=== PATIENT | male | born 1935 | race Caucasian/White ===

== ENCOUNTER 2019-02-25 08:57 | Emergency (ER) | payer MEDICARE, BC ==
[2019-02-25] MEDS ORDERED: Sodium Chloride 0.9% 10 ML Syringe FLUSH PRN (09:11)
[2019-02-25] MEDS ORDERED: Aspirin 81 MG Tab.Chew PO ONE (09:17)
[2019-02-25] MEDS ORDERED: Morphine 2 MG/ML Syringe IVPUSH ONE (09:19)
--- NOTE | 2019-02-25 09:34 | EDM.PDOC ---
ED HPI GENERAL MEDICAL PROBLEM - General Stated Complaint: CHEST PAINS Time Seen by Provider: 02/25/19 09:00 Source of Information: Reports: Patient History Limitations: Reports: No Limitations - History of Present Illness INITIAL COMMENTS - FREE TEXT/NARRATIVE: Patient comes to the emergency department complaint of chest pain. Patient states that the chest discomfort started approximately 2 days ago. Patient states that it started in his right elbow and gravitated towards the mid sternal chest discomfort. He rates it about a 5 on a scale from 5-10. He also states that he is able to go to complete his activities of daily living . he states that the discomfort is more of annoyance than any sharps/hooting/ discomfort. He denies any activities that make the discomfort worse or better. He states that it is a constant discomfort and has not gone away in the course of the last 2 days.He denies any shortness of breath,nausea,vomiting, increase swelling of his lower extremities. Patient does not have a history of cardiovascular disease and states that he is relatively healthy jinny. Patient does take daily aspirin and did take it this morning. Patient denies any other concerns or complaints. Onset: Gradual Location: Reports: Chest Quality: Reports: Other Severity: Mild Improves with: Reports: None Worsens with: Reports: None Context: Reports: Other Associated Symptoms: Reports: No Other Symptoms Treatments CASE BRIEFER: Reports: Aspirin - Related Data Allergies Allergy/AdvReac Type Severity Reaction Status Date / Time shrimp Allergy Nausea and Verified 02/25/19 11:19 Vomiting Home Meds: Home Meds Aspirin/Dipyridamole [Aggrenox 200-25 MG] 1 cap PO BID 02/25/19 [History] Folic Acid 1 mg PO DAILY 02/25/19 [History] Gabapentin [Neurontin] 100 mg PO TID 02/25/19 [History] atorvaSTATin Calcium [Atorvastatin Calcium] 20 mg PO DAILY 02/25/19 [History] ED ROS GENERAL - Review of Systems Review Of Systems: See Below Constitutional: Reports: No Symptoms HEENT: Reports: No Symptoms Respiratory: Reports: No Symptoms Cardiovascular: Reports: Chest Pain Endocrine: Reports: No Symptoms GI/Abdominal: Reports: No Symptoms : Reports: No Symptoms Musculoskeletal: Reports: No Symptoms Skin: Reports: No Symptoms Neurological: Reports: No Symptoms ED EXAM, GENERAL - Physical Exam Exam: See Below Exam Limited By: No Limitations General Appearance: Alert, WD/WN, No Apparent Distress Head: Atraumatic, Normocephalic Neck: Normal Inspection, Supple, Non-Tender, Full Range of Motion Respiratory/Chest: No Respiratory Distress, Lungs Clear, No Accessory Muscle Use , Chest Non-Tender Cardiovascular: Normal Peripheral Pulses, Regular Rate, Rhythm, No Edema Back Exam: Normal Inspection, Full Range of Motion Extremities: Normal Inspection, Normal Range of Motion, Non-Tender, No Pedal Edema, Normal Capillary Refill Neurological: Alert, Oriented, CN II-XII Intact, Normal Cognition, Normal Gait Psychiatric: Normal Affect, Normal Mood Skin Exam: Warm, Dry, Intact, Normal Color Course - Orders/Labs/Meds Orders: Active Orders 24 hr Category Date Time Status Cardiac Monitoring [RC] . DIRECTED Care 02/25/19 09:11 Active EKG Documentation Completion [RC] STAT Care 02/25/19 09:11 Active Sodium Chloride 0.9% [Saline Flush] Med 02/25/19 09:11 Active 10 ml FLUSH ASDIRECTED PRN Peripheral IV Insertion Adult [OM.PC] Stat Oth 02/25/19 09:11 Ordered Medication Orders Sodium Chloride (Saline Flush) 10 ml FLUSH ASDIRECTED PRN PRN Reason: Keep Vein Open Labs: Laboratory Tests 02/25/19 02/25/19 Range/Units 09:25 09:25 WBC 7.5 (4.0-10.0) x10^3/uL RBC 4.27 L (4.5-6.0) x10^6/uL Hgb 14.5 (14.0-18.0) g/dL Hct 43.2 (40.0-52.0) % MCV 101.2 H (78.0-93.0) fL MCH 34.0 H (26.0-32.0) pg MCHC 33.6 (32.0-36.0) g/dL RDW Coeff of Terese 11.9 (10.0-15.0) % Plt Count 191 (130-400) x10^3/uL Neut % (Auto) 63.6 (50.0-80.0) % Lymph % (Auto) 26.2 (25.0-50.0) % Addison % (Auto) 8.1 (2.0-11.0) % Eos % (Auto) 1.7 (0.0-4.0) % Baso % (Auto) 0.4 (0.2-1.2) % Sodium 140 (69-191) mmol/L Potassium 4.0 (1.5-9.9) mmol/L Chloride 103 (54-184) mmol/L Carbon Dioxide 29 (21-32) mmol/L Anion Gap 12.0 (10-20) mmol/L BUN 15 (7-18) mg/dL Creatinine 1.1 (0.70-1.30) mg/dL Est Cr Clr Drug Dosing TNP Estimated GFR (MDRD) > 60 Glucose 96 (74-106) mg/dL Calcium 9.0 (8.5-10.1) mg/dL Corrected Calcium 9.24 (8.5-10.1) mg/dL Total Bilirubin 0.5 (0.2-1.0) mg/dL AST 22 (15-37) U/L ALT 24 (16-63) U/L Alkaline Phosphatase 77 (46-116) U/L Troponin I < 0.017 (<=0.056) ng/mL Total Protein 7.1 (6.4-8.2) g/dL Albumin 3.7 (3.4-5.0) g/dL Globulin 3.4 Albumin/Globulin Ratio 1.09 Meds: Medications Generic Name Dose Route Start Last Admin Trade Name Freq PRN Reason Stop Dose Admin Sodium Chloride 10 ml 02/25/19 09:11 Saline Flush FLUSH ASDIRECTED PRN Keep Vein Open Discontinued Medications Generic Name Dose Route Start Last Admin Trade Name Freq PRN Reason Stop Dose Admin Aspirin 244 mg 02/25/19 09:17 02/25/19 09:42 Aspirin PO 02/25/19 09:18 243 mg ONETIME ONE Administration Morphine Sulfate 1 mg 02/25/19 09:19 02/25/19 09:42 Morphine IVPUSH 02/25/19 09:20 1 mg ONETIME ONE Administration Departure - Departure Time of Disposition: 10:00 Disposition: Against Medical Advice 07 Condition: Fair Clinical Impression: Bradycardia Chest pain Qualifiers: Chest pain type: unspecified Qualified Code(s): R07.9 - Chest pain, unspecified Instructions: Nonspecific Chest Pain, Bradycardia, Adult Referrals: Deejay Cyr MD [Primary Care Provider] - Forms: ED Department Discharge Additional Instructions: 1. You are leaving against medical advise 2. It is recommended you be evaluated at a higher level of care regarding the cardiac concerns. 3. You are assuming all the risks with leaving prior to further evaluation and management. You have signed the papers stating your understanding. 4. However, at anytime you would like to be reassessed or if symptoms worsen return to the ER, go to your PCP or call 911 right away to initiate medical help. - My Orders Last 24 Hours: My Active Orders 02/25/19 09:11 Cardiac Monitoring [RC] . DIRECTED EKG Documentation Completion [RC] STAT Sodium Chloride 0.9% [Saline Flush] 10 ml FLUSH ASDIRECTED PRN Peripheral IV Insertion Adult [OM.PC] Stat - Assessment/Plan Last 24 Hours: My Active Orders 02/25/19 09:11 Cardiac Monitoring [RC] . DIRECTED EKG Documentation Completion [RC] STAT Sodium Chloride 0.9% [Saline Flush] 10 ml FLUSH ASDIRECTED PRN Peripheral IV Insertion Adult [OM.PC] Stat Assessment:: 1. chest pain Plan: 1. IV initiated in the ER 2. Labs completed in the ER. Results reviewed with patient 3. EKG completed in ER. Results reviewed patient 4. 3 baby aspirins given to the patient ER. Patient took 1 baby aspirin prior to arrival 5. Morphine 1 mg ordered for pain relief 6. After discussing today's visit with the patient it was suggested that he be transported to a higher level care for further evaluation regarding his cardiac status. He was not happy that he was in the ER for 2.5 hours and wanted to be sent home. It was discussed with the patient he was being monitored because he was has having bradycardic (40's) events on the quality assurance monitor chassis and has ongoing chest pain. It was recommended that he be transferred for a further investigation regarding his on going cardiac concerns. Patient is unwilling to be transported to higher-level care. Patient is also unwilling to be admitted to the hospital. Patient assumes the risk of being discharged AGAINST MEDICAL ADVICE. Patient is aware and repeats that he understands the risk factors including myocardial infarction, stroke, bleeding, and even . Patient states that he will follow up with primary care if the chest discomfort continues. Patient is willing to sign AMA papers. 7. Nursing completed AMA papers with the patient prior to discharge. All questions and concerns addressed prior to the patient leaving.
[2019-02-25 09:50] LABS: CHLORIDE,CL 103 mmol/L (54-184); SODIUM,NA 140 mmol/L (69-191)
--- NOTE | 2019-02-25 10:07 | CR ---
[id number] RAD/RAD Chest PA or AP 1V EXAM: FRONTAL CHEST INDICATION: CHEST PAIN. COMPARISON: None. DISCUSSION: The lungs are mildly hypoinflated, but clear. The heart is normal in size. IMPRESSION: 1. Mild hypoinflation. Rigo Song MD 02/25/19 1005 Thank you for allowing us to participate in the care of your patient.
== END 2019-02-25 11:35 | disposition left against medical advice (07) ==
LOC: VM.ED 08:57
DX: R07.9 Chest pain, unspecified (principal); R00.1 Bradycardia, unspecified; Z91.013 Allergy to seafood; Z79.82 Long term (current) use of aspirin; Z79.899 Other long term (current) drug therapy
CPT/HCPCS: 71045; 80053; 84484; 85025; 93005; 96374; 99285; A9270; J2270

== ENCOUNTER 2019-08-11 08:35 | Emergency (ER) | payer MEDICARE, BC ==
[2019-08-11] MEDS ORDERED: Sodium Chloride 0.9% 10 ML Syringe FLUSH PRN (08:52)
[2019-08-11] MEDS ORDERED: Atropine 0.1 MG/ML 10 ML Syringe IVPUSH ONE (08:52)
--- NOTE | 2019-08-11 08:58 | EDM.PDOC ---
ED HPI GENERAL MEDICAL PROBLEM - General Chief Complaint: Cardiovascular Problem Stated Complaint: POSS SEIZURE Time Seen by Provider: 08/11/19 08:45 Source of Information: Reports: Patient History Limitations: Reports: No Limitations - History of Present Illness INITIAL COMMENTS - FREE TEXT/NARRATIVE: Pt. presents to ER with complaints of unresponsive episodes. Family states that today pt. had 2 episodes of unresponsiveness/possible seizure activity. Pt. was transported to ER via private vehicle. Pt. has been experiencing episodes of decreased LOC/unresponsiveness recently and is currently being worked up for this at [facility] in [place]. He is here visiting his son. Pt. states that he recently had a holter-type study that finished last week, but states that he does not have the results. Denies any chest pain. No shortness of breath. No nausea, vomiting, fever, or chills. He is not currently on a beta mohini but recently was started on amlodipine. On arrival to ER, pt. heart rate was noted to be approx. 33. Onset: Today Onset Date: 08/11/19 Location: Reports: Generalized Associated Symptoms: Reports: Confusion, Syncope, Other (Episodes of unresponsiveness, 2 today, lasting about 1 minute. See HPI.) - Related Data Allergies Allergy/AdvReac Type Severity Reaction Status Date / Time shrimp Allergy Nausea and Verified 08/11/19 09:25 Vomiting Home Meds: Home Meds Aspirin/Dipyridamole [Aggrenox 200-25 MG] 1 cap PO BID 02/25/19 [History] Folic Acid 1 mg PO DAILY 02/25/19 [History] Gabapentin [Neurontin] 100 mg PO TID 02/25/19 [History] atorvaSTATin Calcium [Atorvastatin Calcium] 20 mg PO DAILY 02/25/19 [History] Past Medical History Cardiovascular History: Reports: High Cholesterol, Hypertension ED ROS GENERAL - Review of Systems Review Of Systems: See Below Constitutional: Reports: No Symptoms HEENT: Reports: No Symptoms Respiratory: Reports: No Symptoms Cardiovascular: Reports: Lightheadedness, Syncope Endocrine: Reports: No Symptoms GI/Abdominal: Reports: No Symptoms : Reports: No Symptoms Musculoskeletal: Reports: No Symptoms Skin: Reports: No Symptoms Neurological: Reports: No Symptoms Psychiatric: Reports: No Symptoms Hematologic/Lymphatic: Reports: No Symptoms Immunologic: Reports: No Symptoms ED EXAM, GENERAL - Physical Exam Exam: See Below Exam Limited By: No Limitations General Appearance: Alert, WD/WN, No Apparent Distress Eye Exam: Bilateral Eye: EOMI, PERRL Head: Atraumatic, Normocephalic Neck: Normal Inspection, Supple, Non-Tender, Full Range of Motion Respiratory/Chest: No Respiratory Distress, Lungs Clear, Normal Breath Sounds, No Accessory Muscle Use, Chest Non-Tender Cardiovascular: Bradycardia Peripheral Pulses: 4+: Radial (L) GI/Abdominal: Soft, Non-Tender, No Organomegaly, No Distention, No Abnormal Bruit, No Mass, Pelvis Stable (Male) Exam: Deferred Rectal (Males) Exam: Deferred Back Exam: Normal Inspection, Full Range of Motion Extremities: Normal Inspection, Normal Range of Motion, Non-Tender, No Pedal Edema, Normal Capillary Refill Neurological: Alert, Oriented, CN II-XII Intact, Normal Cognition, Normal Gait, Normal Reflexes, No Motor/Sensory Deficits Psychiatric: Normal Affect, Normal Mood Skin Exam: Warm, Dry, Intact, Normal Color, No Rash Lymphatic: No Adenopathy Course - Vital Signs Last Recorded V/S: Last Vital Signs Temp 36.6 C 08/11/19 08:38 Pulse 35 L 08/11/19 09:31 Resp 11 L 08/11/19 09:31 BP 126/47 L 08/11/19 09:31 Pulse Ox 98 08/11/19 09:31 - Orders/Labs/Meds Orders: Active Orders 24 hr Category Date Time Status Cardiac Monitoring [RC] CONTINUOUS Care 08/11/19 08:52 Active EKG Documentation Completion [RC] STAT Care 08/11/19 08:52 Active COMPREHENSIVE METABOLIC PN,CMP [CHEM] Stat Lab 08/11/19 09:17 Received CRP [C-REACTIVE PROTEIN] [CHEM] Stat Lab 08/11/19 09:17 Received MAGNESIUM [CHEM] Stat Lab 08/11/19 09:17 Received PHOSPHORUS [CHEM] Stat Lab 08/11/19 09:17 Received PRO B-TYPE NATRIUR PEPT,BNPPRO [CHEM] Stat Lab 08/11/19 09:17 Received TSH ULTRASENSITIVE [CHEM] Stat Lab 08/11/19 09:17 Received Sodium Chloride 0.9% [Normal Saline] 500 ml Med 08/11/19 09:00 Active IV ASDIRECTED Sodium Chloride 0.9% [Saline Flush] Med 08/11/19 08:52 Active 10 ml FLUSH ASDIRECTED PRN Peripheral IV Insertion Adult [OM.PC] Routine Oth 08/11/19 08:53 Ordered Medication Orders Sodium Chloride (Normal Saline) 500 mls @ 100 mls/hr IV ASDIRECTED EVANGELISTA Last Admin: 08/11/19 08:55 Dose: 100 mls/hr Sodium Chloride (Saline Flush) 10 ml FLUSH ASDIRECTED PRN PRN Reason: Keep Vein Open Labs: Laboratory Tests 08/11/19 08/11/19 Range/Units 09:17 09:17 WBC 8.7 (4.0-10.0) x10^3/uL RBC 3.81 L (4.5-6.0) x10^6/uL Hgb 13.0 L D (14.0-18.0) g/dL Hct 38.7 L (40.0-52.0) % MCV 101.6 H (78.0-93.0) fL MCH 34.1 H (26.0-32.0) pg MCHC 33.6 (32.0-36.0) g/dL RDW Coeff of Terese 11.4 (10.0-15.0) % Plt Count 201 (130-400) x10^3/uL Neut % (Auto) 79.5 (50.0-80.0) % Lymph % (Auto) 10.6 L (25.0-50.0) % [place]asper % (Auto) 9.1 (2.0-11.0) % Eos % (Auto) 0.6 (0.0-4.0) % Baso % (Auto) 0.2 (0.2-1.2) % PT 10.4 (10.0-12.8) SEC INR 0.9 L (2.0-3.5) Meds: Medications Generic Name Dose Route Start Last Admin Trade Name Freq PRN Reason Stop Dose Admin Sodium Chloride 500 mls @ 100 mls/hr 08/11/19 09:00 08/11/19 08:55 Normal Saline IV 100 mls/hr ASDIRECTED EVANGELISTA Administration Sodium Chloride 10 ml 08/11/19 08:52 Saline Flush FLUSH ASDIRECTED PRN Keep Vein Open Discontinued Medications Generic Name Dose Route Start Last Admin Trade Name Freq PRN Reason Stop Dose Admin Atropine Sulfate 0.5 mg 08/11/19 08:52 08/11/19 08:55 Atropine 0.1 Mg/Ml IVPUSH 08/11/19 08:53 0.5 mg ONETIME ONE Administration Departure - Departure Time of Disposition: 09:29 Disposition: DC/Tfer to Acute Hospital 02 Reason for Transfer *Q: Other Condition: Critical Clinical Impression: Third degree heart block, Symptomatic bradycardia Referrals: Deejay Cyr MD [Primary Care Provider] - Forms: ED Department Discharge Sepsis Event Note - Focused Exam Vital Signs: Vital Signs Temp Pulse Resp BP Pulse Ox 08/11/19 09:31 35 L 11 L 126/47 L 98 08/11/19 08:38 36.6 C 36 L 18 156/97 H 98 Date Exam was Performed: 08/11/19 Time Exam was Performed: 09:39 - Problem List Review Problem List Initiated/Reviewed/Updated: Yes - My Orders Last 24 Hours: My Active Orders 08/11/19 08:52 Cardiac Monitoring [RC] CONTINUOUS EKG Documentation Completion [RC] STAT Sodium Chloride 0.9% [Saline Flush] 10 ml FLUSH ASDIRECTED PRN 08/11/19 08:53 Peripheral IV Insertion Adult [OM.PC] Routine 08/11/19 09:00 Sodium Chloride 0.9% [Normal Saline] 500 ml IV ASDIRECTED 08/11/19 09:17 COMPREHENSIVE METABOLIC PN,CMP [CHEM] Stat CRP [C-REACTIVE PROTEIN] [CHEM] Stat MAGNESIUM [CHEM] Stat PHOSPHORUS [CHEM] Stat PRO B-TYPE NATRIUR PEPT,BNPPRO [CHEM] Stat TSH ULTRASENSITIVE [CHEM] Stat - Assessment/Plan Last 24 Hours: My Active Orders 08/11/19 08:52 Cardiac Monitoring [RC] CONTINUOUS EKG Documentation Completion [RC] STAT Sodium Chloride 0.9% [Saline Flush] 10 ml FLUSH ASDIRECTED PRN 08/11/19 08:53 Peripheral IV Insertion Adult [OM.PC] Routine 08/11/19 09:00 Sodium Chloride 0.9% [Normal Saline] 500 ml IV ASDIRECTED 08/11/19 09:17 COMPREHENSIVE METABOLIC PN,CMP [CHEM] Stat CRP [C-REACTIVE PROTEIN] [CHEM] Stat MAGNESIUM [CHEM] Stat PHOSPHORUS [CHEM] Stat PRO B-TYPE NATRIUR PEPT,BNPPRO [CHEM] Stat TSH ULTRASENSITIVE [CHEM] Stat Plan: Pt. will be transferred to [facility]. He is going to the intermediate care area. Dr. Gonzalez is accepting. Pt. is a code 1. Pt. did not respond to atropine 0.5mg IV. Pacing patches were placed.
[2019-08-11] MEDS ORDERED: Sodium Chloride 0.9% 500 ML IV SCH (09:00)
[2019-08-11 09:51] LABS: CHLORIDE,CL 101 mmol/L (98-107); SODIUM,NA 136 mmol/L (136-145)
[2019-08-11 09:52] LABS: ANION GAP 12.9 mmol/L (10-20)
== END 2019-08-11 10:25 | disposition short-term general hospital (02) ==
LOC: VM.ED 08:35
DX: I44.2 Atrioventricular block, complete (principal); E78.00 Pure hypercholesterolemia, unspecified; I10 Essential (primary) hypertension; Z91.013 Allergy to seafood; Z79.82 Long term (current) use of aspirin; Z79.899 Other long term (current) drug therapy
CPT/HCPCS: 36415; 80053; 83735; 83880; 84100; 84443; 84484; 85025; 85610; 86140; 93005; 96361; 96374; 99284; 99285; J0461; J7040